=== PATIENT | female | born 1985 | race Hispanic/Latino ===

== ENCOUNTER 2018-04-11 08:19 | Emergency (ER) | payer OTHER ==
[~2018-04-11] VITALS: Ht 162.6 cm; Wt 90.7 kg
[2018-04-11] MEDS ORDERED: LISINOPRIL-HCT1 EAC1 PO (08:40)
--- NOTE | 2018-04-11 08:55 | Diagnostic Imaging Report ---
PROCEDURE:FOOT 3 VIEW LT - HOPD COMPARISON:None. INDICATIONS:pt kicked a couch yesterday, pain to 1st and 2nd FINDINGS:No evidence of fracture, malalignment, or soft tissue abnormality. The [place] alignment is maintained. CONCLUSION: No acute radiographic abnormality. Dictated by: DEEPTI PRABHAKAR M.D. on 04/11/2018 at 9:03 Electronically approved by: DEEPTI PRABHAKAR M.D. on 04/11/2018 at 9:03
--- NOTE | 2018-04-11 09:28 | Diagnostic Imaging Report ---
PROCEDURE:ANKLE 3VIEW LT - HOPD COMPARISON:None. INDICATIONS:pt kicked couch FINDINGS:No evidence of fracture or malalignment. The ankle mortise is preserved. Mild soft tissue swelling in the ankle bilaterally. CONCLUSION: Soft tissue edema in the ankle without acute osseous abnormality. Dictated by: DEEPTI PRABHAKAR M.D. on 04/11/2018 at 9:36 Electronically approved by: DEEPTI PRABHAKAR M.D. on 04/11/2018 at 9:36
[2018-04-11] MEDS ORDERED: KETOROLAC TROMETHAMINE 60 MG/2 ML VIAL IM ONE (09:30)
[2018-04-11] MEDS ORDERED: KETOROLAC TROME10 MG PO (09:44)
--- OUTSIDE RECORDS SUMMARY | 2018-04-11 14:42 | XMS REPORT | Clinical Summary ---
Author Author [facility] Address Unknown Phone Unavailable Care Team [facility] Name Role Phone Huong Orozco MD PCP Allergies Active Allergy Reactions Severity Noted Date Comments Amoxicillin Rash Low 10/17/2014 Penicillins Rash Low 11/03/2017 Sumatriptan Succinate Shortness Of Breath High 05/02/2014 Current Medications Prescription Sig. Disp. Refills Start End Date Status Date etonogestrel (NEXPLANON) by subdermal route once. Active 68 mg implant lisinopril-hydrochlorothi TAKE 1 TABLET BY MOUTH 90 tablet 0 03/29/20 Active azide EVERY DAY 18 (PRINZIDE,ZESTORETIC) 20-25 mg per tablet labetalol (NORMODYNE) 100 Take 100 mg by mouth 2 09/02/19 11/17/19 Discontin MG tablet (two) times a day. 17 18 ued lisinopril-hydrochlorothi Take 1 tablet by mouth 30 tablet 1 11/04/19 12/29/19 Discontin azide daily for 30 days. 18 18 ued (PRINZIDE,ZESTORETIC) 20-25 mg per tablet ergocalciferol (VITAMIN Take 1 capsule (50,000 12 capsule 0 11/08/19 01/31/20 D2) 50,000 unit capsule Units total) by mouth 18 18 once a week for 84 days. pantoprazole (PROTONIX) Take 1 tablet (40 mg 90 tablet 1 11/18/19 02/16/20 40 MG EC tablet total) by mouth daily for 18 18 90 days. lisinopril-hydrochlorothi TAKE 1 TABLET BY MOUTH 90 tablet 0 12/30/19 03/29/20 Discontin azide EVERY DAY 18 18 ued (PRINZIDE,ZESTORETIC) 20-25 mg per tablet Active Problems Not on file Encounters Date Type Specialty Care Team Description 03/29/2018 Refill Internal Medicine Huong Orozco MD 03/02/2018 Refill Internal Medicine Huong Orozco MD 02/08/2018 Refill Internal Medicine Huong Orozco MD 12/28/2017 Refill Internal Medicine Huong Orozco MD 12/02/2017 Hospital Radiology Huong Orozco MD Hypertension, unspecified Encounter type 11/29/2017 Telephone Obstetrics and Gynecology Starr Matos RN 11/29/2017 Telephone Obstetrics and Gynecology Starr Matos RN 11/23/2017 Ancillary Obstetrics and Gynecology Denia Lee, Menorrhagia with Procedure irregular cycle; Dysmenorrhea; RLQ abdominal pain 11/23/2017 Ancillary Obstetrics and Gynecology Denia Lee, Menorrhagia with Orders MD irregular cycle; Dysmenorrhea; RLQ abdominal pain 11/17/2017 Office Visit Internal Medicine Huong Orozco MD Essential hypertension (Primary Dx); Gastroesophageal reflux disease, esophagitis presence not specified; Vitamin D deficiency; Numbness 11/16/2017 Office Visit Obstetrics and Gynecology Denia Lee, Pap smear for cervical MD cancer screening (Primary Dx); Well woman exam; Menorrhagia with irregular cycle; Dysmenorrhea; History of abnormal cervical Pap smear; History of loop electrical excision procedure (LEEP); RLQ abdominal pain 11/07/2017 Orders Only Internal Medicine Huong Orozco MD 11/03/2017 Office Visit Internal Medicine Huong Orozco MD Hypertension, unspecified type (Primary Dx); Pure hypercholesterolemia; Encounter for routine adult health examination with abnormal findings; Pap smear for cervical cancer screening; Menorrhagia with irregular cycle after 04/10/2017 Family History Medical History Relation Name Comments Hypertension Father Alfonzo Eclampsia Mother Anu Hyperlipidemia Mother Anu Relation Name Status Comments Father Alfonzo Alive Mother Anu Alive Social History Tobacco Use Types Packs/Day Years Used Date Never Smoker Smokeless Tobacco: Never Used Alcohol Use Drinks/Week oz/Week Comments No Sex Assigned at Date Recorded Not on file Last Filed Vital Signs Vital Sign Reading Time Taken Blood Pressure 113/73 11/17/2017 9:12 AM CDT Pulse 70 11/17/2017 9:12 AM CDT Temperature 36.6 C (97.9 F) 11/17/2017 9:12 AM CDT Respiratory Rate 16 11/17/2017 9:12 AM CDT Oxygen Saturation 98% 11/17/2017 9:12 AM CDT Inhaled Oxygen - - Concentration Weight 88.5 kg (195 lb) 11/17/2017 9:12 AM CDT Height 162.6 cm (5' 4") 11/17/2017 9:12 AM CDT Body Mass Index 33.47 11/17/2017 9:12 AM CDT Plan of Treatment Date Type Specialty Care Team Description 04/12/2018 Office Visit [place] [address] [place] [address] Health Maintenance Due Date Last Done Comments CERVICAL CANCER SCREENING 2005 INFLUENZA VACCINE 01/25/2018 04/20/2016, 03/27/2014, 02/25/2011 Procedures Procedure Name Priority Date/Time Associated Diagnosis Comments US RENAL DOPPLER Routine 12/02/2017 Hypertension, unspecified Results for this 3:45 PM CDT type procedure are in the results section. US PELVIC TRANSVAGINAL Routine 11/23/2017 Menorrhagia with Results for this 3:34 PM CDT irregular cycle procedure are in the Dysmenorrhea results section. RLQ abdominal pain GYNECOLOGIC PAP TEST Routine 11/16/2017 Results for this (IMAGE-GUIDED), 11:58 AM CDT procedure are in the LIQUID-BASED PREPARATION results section. AND HUM NUSWAB VAGINITIS PLUS Routine 11/16/2017 Well woman exam Results for this (VG+) 11:58 AM CDT procedure are in the results section. IGP,APTIMA HPV,AGE GDLN Routine 11/16/2017 Pap smear for cervical Results for this 11:58 AM CDT cancer screening procedure are in the Well woman exam results section. History of abnormal cervical Pap smear History of loop electrical excision procedure (LEEP) MICROSCOPIC EXAMINATION Routine 11/04/2017 Results for this 9:43 AM CDT procedure are in the results section. TOTAL IRON BINDING Routine 11/04/2017 Menorrhagia with Results for this CAPACITY 9:43 AM CDT irregular cycle procedure are in the results section. FERRITIN LEVEL Routine 11/04/2017 Menorrhagia with Results for this 9:43 AM CDT irregular cycle procedure are in the results section. ALDOSTERONE/RENIN RATIO Routine 11/04/2017 Hypertension, unspecified Results for this 9:43 AM CDT type procedure are in the results section. URINALYSIS, AUTOMATED Routine 11/04/2017 Hypertension, unspecified Results for this WITH MICROSCOPY 9:43 AM CDT type procedure are in the results section. T4, FREE Routine 11/04/2017 Encounter for routine Results for this 9:43 AM CDT adult health examination procedure are in the with abnormal findings results section. THYROID STIMULATING Routine 11/04/2017 Encounter for routine Results for this HORMONE 9:43 AM CDT adult health examination procedure are in the with abnormal findings results section. VITAMIN D 25 HYDROXY Routine 11/04/2017 Encounter for routine Results for this LEVEL 9:43 AM CDT adult health examination procedure are in the with abnormal findings results section. LIPID PANEL Routine 11/04/2017 Pure hypercholesterolemia Results for this 9:43 AM CDT procedure are in the results section. HEMOGLOBIN A1C Routine 11/04/2017 Hypertension, unspecified Results for this 9:43 AM CDT type procedure are in the results section. COMPREHENSIVE METABOLIC Routine 11/04/2017 Pure hypercholesterolemia Results for this PANEL 9:43 AM CDT procedure are in the results section. CBC WITH PLATELET AND Routine 11/04/2017 Hypertension, unspecified Results for this DIFFERENTIAL 9:43 AM CDT type procedure are in the results section. MICROALBUMIN / CREATININE Routine 11/04/2017 Hypertension, unspecified Results for this URINE RATIO 9:43 AM CDT type procedure are in the results section. ECG 12-LEAD Routine 11/03/2017 Hypertension, unspecified Results for this 9:25 AM CDT type procedure are in the results section. MUMPS VIRUS ANTIBODY, IGG Routine 09/30/2017 Examination, physical, Results for this 11:55 AM CDT employee procedure are in the results section. HEPATITIS B SURFACE Routine 09/30/2017 Examination, physical, Results for this ANTIBODY 11:55 AM CDT employee procedure are in the results section. MEASLES (RUBEOLA) Routine 09/30/2017 Examination, physical, Results for this ANTIBODY IGG 11:55 AM CDT employee procedure are in the results section. VARICELLA ZOSTER VIRUS Routine 09/30/2017 Examination, physical, Results for this AB, IGG 11:55 AM CDT employee procedure are in the results section. RUBELLA AB IGG Routine 09/30/2017 Examination, physical, Results for this 11:55 AM CDT employee procedure are in the results section. after 04/10/2017 Results * US Renal Doppler (12/02/2017 3:45 PM) Narrative Performed At EXAMINATION:[facility] CL[facility]ICAL H[facility]ORY:I10 Essential (primary) hypertension, r o PAVAN TECHNIQUE: Examination includes a full duplex Doppler scan of the renal vessels (real-time B mode grayscale, Doppler spectral analysis, and Doppler color flow imaging). COMPARISON:None. FINDINGS: Right renal arterial waveforms demonstrate normal systolic upstrokes and good enddiastolic flow. The right renal vein is patent.The superior, mid and low resistive index measures 0.57, 0.62 and 0.54, respectively. The right RAR is 1.2.. Left renal arterial waveforms demonstrate normal systolic upstrokes and good end diastolic flow. The left renal vein is patent.The superior, mid and low resistive index measures 0.51, 0.56 and 0.56, respectively. The left RAR is 0.9.. IMPRESSION: Normal renal Doppler ultrasound examination. [id number] Procedure Note Interface, Radiology Results Incoming - 12/02/2017 4:09 PM CDT EXAMINATION: US RENAL DOPPLER CLINICAL HISTORY: I10 Essential (primary) hypertension, r o PAVAN TECHNIQUE: Examination includes a full duplex Doppler scan of the renal vessels (real-time B mode grayscale, Doppler spectral analysis, and Doppler color flow imaging). COMPARISON: None. FINDINGS: Right renal arterial waveforms demonstrate normal systolic upstrokes and good end diastolic flow. The right renal vein is patent. The superior, mid and low resistive index measures 0.57, 0.62 and 0.54, respectively. The right RAR is 1.2.. Left renal arterial waveforms demonstrate normal systolic upstrokes and good end diastolic flow. The left renal vein is patent. The superior, mid and low resistive index measures 0.51, 0.56 and 0.56, respectively. The left RAR is 0.9.. IMPRESSION: Normal renal Doppler ultrasound examination. [id number] Performing Organization Address City/State/Zipcode Phone Number [facility] [address] [place] [address] * US Pelvic Transvaginal (11/23/2017 3:34 PM) Narrative Performed At [facility] Uterus: 8.7cm Endometrium: 1.8mm Right Ovary: 2.0cm No abnormalities visualized. Left Ovary: 2.4cm No abnormalities visualized. Bilateral adnexa normal. Performing Organization Address City/State/Zipcode Phone Number KANDY [facility] [address] [place] [address] * IGP,Aptima HPV,Age Gdln (11/16/2017 11:58 AM) Age GDLN ACOG testing 30-65 [facility] Specimen Cervical Narrative Performed At Performed at:01 - [facility] [place] [facility] [address] [facility], [place], [id number] Publicity Expert: Bette Rodriguez MD, Phone:[phone] Specimen Comment: No. of containers..01 ThinPrep Vial Performing Organization Address City/[facility] Phone Number [facility] * Gynecologic Pap Test (Image-guided), Liquid-based Preparation and Human Papillomavirus (HPV) (Aptima) With Reflex to HPV Genotypes 16 and 18,45 16 and 18 (11/16/2017 11:58 AM) Diagnosis Comment [facility] 02 Comment: NEGATIVE FOR INTRAEPITHELIAL LESION AND MALIGNANCY. THIS SPECIMEN WAS RESCREENED PART OF OUR LINK TRAINER TEACHER PROGRAM. Specimen adequacy Comment [facility] 02 Comment: Satisfactory for evaluation.Endocervical and/or squamous metaplastic cells (endocervical component) are present. Clinician provided ICD10 Comment [facility] 02 Comment: Z12.4 Z01.419 Z87.898 Z98.890 Performed by: Comment [facility] 02 Comment: Mendez Amaya, Slinger Sequins (ASCP) Reviewed at: [facility] [address] [facility] [id number] QC reviewed by: CommentComment: Victor Hugo [facility] 02 Nidia Slinger Sequins (ASCP) Comment . [facility] 02 Note: Comment [facility] 02 Comment: The Pap smear is a screening test designed to aid in the detection of premalignant and malignant conditions of the uterine cervix.It is not a diagnostic procedure and should not be used as the sole means of detecting cervical cancer.Both false-positive and false-negative reports do occur. Test methodology Comment [facility] 02 Comment: This liquid based ThinPrep(R) pap test was screened with the use of an image guided system. HPV Aptima Negative Negative [facility] Comment: This test detects fourteen high-risk HPV types (16/18/31/33/35/39/45/ 51/52/56/58/59/66/68) without differentiation. Narrative Performed At Performed at: - [facility] [address] [facility], [id number] Publicity Expert: Bette Rodriguez MD, Phone:[phone] Performed at: - [facility] [address] [facility], [id number] Publicity Expert: Bette Rodriguez MD, Phone:[phone] Performing Organization Address [facility] [place] Phone Number [facility] 02 * NuSwab Vaginitis Plus (VG+) (11/16/2017 11:58 AM) Atopobium vaginae Low - 0 Score [facility] BVAB 2 Low - 0 Score [facility] Megasphaera species Low - 0 Score [facility] Comment: Calculate total score by adding the 3 individual bacterial vaginosis (BV) marker scores together.Total score is interpreted as follows: Total score 0-1: Indicates the absence of BV. Total score 2: Indeterminate for BV. Additional clinical data should be evaluated to establish a diagnosis. Total score 3-6: Indicates the presence of BV. This test was developed and its performance characteristics determined by [facility].It has not been cleared or approved by the Food and Drug Administration.The FDA has determined that such clearance or approval is not necessary. Deepti albicans, AYAAN Negative Negative [facility] C. glabrata, DNA Negative Negative [facility] Comment: This test was developed and its performance characteristics determined by [facility].It has not been cleared or approved by the Food and Drug Administration.The FDA has determined that such clearance or approval is not necessary. Trichomonas vag by AYAAN Negative Negative [facility] Chlamydia trachomatis, Negative Negative [facility] AYAAN Neisseria gonorrhoeae, Negative Negative [facility] AYAAN Specimen Swab Narrative Performed At Performed at: - [facility] [place] [facility] [address] [place], [id number] Publicity Expert: Talat Corrales MD, Phone:[phone] Performing Organization Address [facility] [place] Phone Number [facility] * Aldosterone/renin ratio (11/04/2017 9:43 AM) Aldosterone 1.6 0.0 - 30.0 ng/dL [facility] Comment: This test was developed and its performance characteristics determined by [facility]. It has not been cleared or approved by the Food and Drug Administration. Renin activity 2.477 0.167 - 5.380 ng/mL/hr [facility] Comment: This test was developed and its performance characteristics determined by [facility]. It has not been cleared or approved by the Food and Drug Administration. Aldos/renin ratio 0.6Comment: 0.0 - 30.0 [facility] Units: ng/dL per ng/mL/hr Specimen Blood Narrative Performed At Performed at: - [id number] Publicity Expert: Talat Corrales MD, Phone:[phone] Performing Organization Address [facility] [place] Phone Number [facility] * Microscopic Examination (11/04/2017 9:43 AM) WBC, UA 0-5 0 - 5 /hpf [facility] RBC, UA 0-2 0 - 2 /hpf [facility] Epithelial cells (non 0-10 0 - 10 /hpf [facility] renal) Casts Present (A) None seen /lpf [facility] Cast type Hyaline casts N/A [facility] Mucus, UA Present Not Estab. [facility] Bacteria, UA Few None seen/Few [facility] Narrative Performed At Performed at: - [facility] [place] [facility] [place], [id number] Publicity Expert: Jaret Maradiaga MD, Phone:[phone] Performing Organization Address [facility] [place] Phone Number [facility] * Total iron binding capacity (11/04/2017 9:43 AM) Iron binding capacity 406 250 - 450 ug/dL [facility] Unsaturated iron binding 340 131 - 425 ug/dL [facility] capacity Iron level 66 27 - 159 ug/dL [facility] Iron saturation 16 15 - 55 % [facility] Specimen Blood Narrative Performed At Performed at: - [facility] [place] [facility] [place], [id number] Publicity Expert: Jaret Maradiaga MD, Phone:[phone] Performing Organization Address [facility] [place] Phone Number [facility] * Microalbumin / creatinine urine ratio (11/04/2017 9:43 AM) Creatinine, urine, random 158.4 Not Estab. mg/dL [facility] Microalbumin, urine 19.0 Not Estab. ug/mL [facility] Microalbumin/creatinine 12.0 0.0 - 30.0 mg/g creat [facility] ratio Specimen Urine Narrative Performed At Performed at: [facility] [place] [facility] [address] [place], [id number] Publicity Expert: Jaret Maradiaga MD, Phone:[phone] Performing Organization Address [facility] [place] Phone Number [facility] * Vitamin D 25 hydroxy level (11/04/2017 9:43 AM) Vitamin D, 25-hydroxy 20.4 (L) 30.0 - 100.0 ng/mL [facility] Comment: Vitamin D deficiency has been defined by the [place] of Medicine and an Endocrine Society practice guideline as a level of serum 25-OH vitamin D less than 20 ng/mL (1,2). The Endocrine Society went on to further define vitamin D insufficiency as a level between 21 and 29 ng/mL (2). 1. IOM ([place] of Medicine). 2010. Dietary reference intakes for calcium and D. [place]: The National Academies Press. 2. Nury MF, Rodger [place], [place] COLON, et al. Evaluation, treatment, and prevention of vitamin D deficiency: an Endocrine Society clinical practice guideline. JCEM. 2010; 96(7):1911-30. Specimen Blood Narrative Performed At Performed at: [facility] [place] [facility] [address] [place], [id number] Publicity Expert: Jaret Maradiaga MD, Phone:[phone] Performing Organization Address [facility] [place] Phone Number [facility] * Urinalysis, automated with microscopy (11/04/2017 9:43 AM) Specific gravity, urine 1.018 1.005 - 1.030 [facility] pH, urine 6.0 5.0 - 7.5 [facility] Color, UA Yellow Yellow [facility] Appearance Clear Clear [facility] WBC esterase, urine Negative Negative [facility] Protein, UA Negative Negative/Trace [facility] Glucose, urine Negative Negative [facility] Ketones, UA Negative Negative [facility] Occult blood, urine Negative Negative [facility] Bilirubin, UA Negative Negative [facility] Urobilinogen, UA 0.2 0.2 - 1.0 mg/dL [facility] Nitrite, UA Negative Negative [facility] Microscopic examination CommentComment: Microscopic [facility] follows if indicated. Microscopic examination See below:Comment: Microscopic [facility] was indicated and was performed. Specimen Urine Narrative Performed At Performed at: - [facility] [place] [facility] [address] [facility], [id number] Publicity Expert: Jaret Maradiaga MD, Phone:[phone] Performing Organization Address City/State/Zipcode Phone Number [facility] * CBC with platelet and differential (11/04/2017 9:43 AM) WBC 6.1 3.4 - 10.8 x10E3/uL [facility] RBC 4.81 3.77 - 5.28 x10E6/uL [facility] HGB 14.5 11.1 - 15.9 g/dL [facility] HCT 43.2 34.0 - 46.6 % [facility] MCV 90 79 - 97 fL [facility] MCH 30.1 26.6 - 33.0 pg [facility] MCHC 33.6 31.5 - 35.7 g/dL [facility] RDW 13.5 12.3 - 15.4 % [facility] Platelet count 350 150 - 379 x10E3/uL [facility] Neutrophils 53 Not Estab. % [facility] Lymphocytes 38 Not Estab. % [facility] Monocytes 5 Not Estab. % [facility] Eosinophils 3 Not Estab. % [facility] Basophils 1 Not Estab. % [facility] Neutrophils, absolute 3.3 1.4 - 7.0 x10E3/uL [facility] Lymphocytes, absolute 2.3 0.7 - 3.1 x10E3/uL [facility] Monocytes, absolute 0.3 0.1 - 0.9 x10E3/uL [facility] Eosinophils, absolute 0.2 0.0 - 0.4 x10E3/uL [facility] Basophils, absolute 0.1 0.0 - 0.2 x10E3/uL [facility] Immature granulocytes 0 Not Estab. % [facility] Immature grans (abs) 0.0 0.0 - 0.1 x10E3/uL [facility] Specimen Blood Narrative Performed At Performed at: [id number] Publicity Expert: Jaret Maradiaga MD, Phone:[phone] Performing Organization Address [facility] [place] Phone Number [facility] * Thyroid stimulating hormone (11/04/2017 9:43 AM) TSH 2.650 0.450 - 4.500 uIU/mL [facility] Specimen Blood Narrative Performed At Performed at: [id number] Publicity Expert: Jaret Maradiaga MD, Phone:[phone] Performing Organization Address [facility] [place] Phone Number [facility] * T4, free (11/04/2017 9:43 AM) T4, free 1.10 0.82 - 1.77 ng/dL [facility] Specimen Blood Narrative Performed At Performed at: [id number] Publicity Expert: Jaret Maradiaga MD, Phone:[phone] Performing Organization Address [facility] [place] Phone Number [facility] * Hemoglobin A1c (11/04/2017 9:43 AM) Hemoglobin A1C 5.3 4.8 - 5.6 % [facility] Comment: Pre-diabetes: 5.7 - 6.4 Diabetes: >6.4 Glycemic control for adults with diabetes: <7.0 Specimen Blood Narrative Performed At Performed at: [id number] Publicity Expert: Jaret Maradiaga MD, Phone:[phone] Performing Organization Address [facility] [place] Phone Number [facility] * Ferritin level (11/04/2017 9:43 AM) Ferritin level 55 15 - 150 ng/mL [facility] Specimen Blood Narrative Performed At Performed at:[address] [place], [place] [id number] Publicity Expert: Jaret Maradiaga MD, Phone:[phone] Performing Organization Address [facility] [place] Phone Number [facility] * Lipid panel (11/04/2017 9:43 AM) Cholesterol 243 (H) 100 - 199 mg/dL [facility] Triglycerides 163 (H) 0 - 149 mg/dL [facility] HDL cholesterol 42 >39 mg/dL [facility] VLDL cholesterol alyssa 33 5 - 40 mg/dL [facility] LDL cholesterol 168 (H) 0 - 99 mg/dL [facility] calculated Non-HDL cholesterol 201 (H) 0 - 129 mg/dL [facility] Specimen Blood Narrative Performed At Performed at:01 - [id number] Publicity Expert: Jaret Maradiaga MD, Phone:[phone] Performing Organization Address [facility] [place] Phone Number [facility] * Comprehensive metabolic panel (11/04/2017 9:43 AM) Glucose 84 65 - 99 mg/dL [facility] BUN, whole blood 12 6 - 20 mg/dL [facility] Creatinine 0.91 0.57 - 1.00 mg/dL [facility] EGFR Non-Afr. Bahamian 83 >59 mL/min/1.73 [facility] EGFR 96 >59 mL/min/1.73 [facility] BUN/creatinine ratio 13 9 - 23 [facility] Sodium 138 134 - 144 mmol/L [facility] Potassium 4.6 3.5 - 5.2 mmol/L [facility] Chloride 96 96 - 106 mmol/L [facility] CO2 23 18 - 29 mmol/L [facility] Calcium 10.2 8.7 - 10.2 mg/dL [facility] Protein 8.5 6.0 - 8.5 g/dL [facility] Albumin, S 5.0 3.5 - 5.5 g/dL [facility] Globulin, total 3.5 1.5 - 4.5 g/dL [facility] Albumin/globulin ratio 1.4 1.2 - 2.2 [facility] Total bilirubin 0.5 0.0 - 1.2 mg/dL [facility] Alkaline phosphatase 67 39 - 117 IU/L [facility] AST 16 0 - 40 IU/L [facility] ALT 17 0 - 32 IU/L [facility] Specimen Blood Narrative Performed At Performed at:01 - [facility] [place] [facility] [address] [place], [id number] Publicity Expert: Jaret Maradiaga MD, Phone:[phone] Performing Organization Address City/State/Zipcode Phone Number [facility] * ECG 12 lead (11/03/2017 9:25 AM) Ventricular rate 61 [facility] Atrial rate 61 [facility] DC interval 164 [facility] MUSE QRSD interval 84 [facility] M[facility] QT interval 408 [facility] QTC interval 410 [facility] P axis 1 46 [facility] QRS axis 1 59 [facility] M[facility] T wave axis 58 [facility] MUSE EKG impression Normal sinus rhythm-Normal [facility] MUSE ECG-No previous ECGs available- Narrative Performed At Performing Organization Address [facility] [place] Phone Number [facility] [address] [place] [address] * Measles (rubeola) antibody IgG (09/30/2017 11:55 AM) Measles (rubeola) Ab, IgG Positive (A)Comment: Positive: Negative [facility] DEPARTMENT OF Indicates current or past PATHOLOGY AND infection. GENOMIC MEDICINE Specimen Serum Performing Organization Address [facility] Phone Number [facility] [address] [place] [id number] PATHOLOGY AND GENOMIC MEDICINE * Rubella Ab IgG (09/30/2017 11:55 AM) Rubella IgG antibody Positive (A) Non-reactive [facility] DEPARTMENT OF PATHOLOGY AND GENOMIC MEDICINE Specimen Blood Performing Organization Address City/[facility] Phone Number [facility] DEPARTMENT OF [address] [place] [address] [place] [address] PATHOLOGY AND GENOMIC MEDICINE * Hepatitis B surface antibody (09/30/2017 11:55 AM) Hepatitis B surface Ab Reactive (A) Non-reactive [facility] DEPARTMENT OF PATHOLOGY AND GENOMIC MEDICINE Specimen Blood Performing Organization Address City/[facility]/Zipcode Phone Number [facility] DEPARTMENT OF [address] [place] [address] [place] [address] PATHOLOGY AND GENOMIC MEDICINE * Varicella zoster virus Ab, IgG (09/30/2017 11:55 AM) VZV IgG Positive (A)Comment: Positive: Negative [facility] DEPARTMENT OF Indicates current or past PATHOLOGY AND infection. GENOMIC MEDICINE Specimen Serum Performing Organization Address City/State/Zipcode Phone Number [facility] DEPARTMENT OF [address] [place] [address] PATHOLOGY AND GENOMIC MEDICINE * Mumps virus antibody, IgG (09/30/2017 11:55 AM) Mumps Ab, IgG Positive (A)Comment: Positive: Negative [facility] DEPARTMENT OF Indicates current or past PATHOLOGY AND infection. GENOMIC MEDICINE Specimen Serum Performing Organization Address City/State/Zipcode Phone Number [facility] DEPARTMENT OF [address] [place] [address] PATHOLOGY AND GENOMIC MEDICINE after 04/10/2017 Insurance Payer Benefit Subscriber ID Type Phone Address Plan / Group LIYA NICKERSON OPEN xxxxxxxxxxx O ACCESS/NET WORK Home: [id number] [place] [id number] LAURA NELSON Self 1985 Home: [address] [place] [address] LAURA NELSON Self 1985 Home: [address] [place] [address] LAURA NELSON Self 1985 Home[phone] [place] [address]
== END 2018-04-11 10:27 | disposition home or self-care (01) ==
LOC: FSED 08:19
DX: G89.11 Acute pain due to trauma (principal); M25.572 Pain in left ankle and joints of left foot; S93.492A Sprain of other ligament of left ankle, initial encounter; W22.03XA Walked into furniture, initial encounter; Y92.008 Other place in unspecified non-institutional (private) residence as the place of occurrence of the external cause; I10 Essential (primary) hypertension
CPT/HCPCS: 73610; 73630; 99284; J1885